=== PATIENT | female | born 1955 | race Caucasian/White ===

== ENCOUNTER 2016-06-28 15:21 | Outpatient (CLI) | payer OTHER | END 2016-06-28 15:22 | LOC: CARD 15:21 | PROVIDERS: ATTEND Internal Medicine Cardiovascular Disease | DX: R00.2 Palpitations (principal); R60.9 Edema, unspecified; I10 Essential (primary) hypertension; F17.210 Nicotine dependence, cigarettes, uncomplicated; R94.5 Abnormal results of liver function studies; R05 Cough | CPT/HCPCS: 99214 ==

== ENCOUNTER 2016-06-30 08:23 | Outpatient (CLI) | payer OTHER ==
--- NOTE | 2016-06-30 13:53 | Diagnostic Imaging Report ---
JULIA GALAN [facility] [address] [facility].[address] [id number] Report Submission Date: June 30, 2016 9:39:19 AM CDT Patient Study Name: VERONICA BORREGO I Date: June 30, 2016 8:29:42 AM CDT Modality Type: CR Gender: F Description: CHEST : 57 Institution: [facility] Physician: JULIA GALAN Pa and lateral chest Clinical history :short of breath coughing Technique pa and lateral upright Findings: The lung tabares are hyperinflated. There is a interstitial infiltrate in both lung bases. No hilar mediastinal mass is seen. There is aortic atherosclerosis. No pleural effusion is seen. Thoracic spondylosis is present. Impression: Hyperinflation of lungs Interstitial infiltrate in both lungs greatest the bases. Consider CT the chest for further evaluation Aortic atherosclerosis Electronically signed on June 30, 2016 9:39:19 AM CDT by: Rodolfo PENA
== END 2016-06-30 08:24 ==
LOC: RAD 08:23
PROVIDERS: ATTEND Internal Medicine Cardiovascular Disease
DX: R91.8 Other nonspecific abnormal finding of lung field (principal); I70.0 Atherosclerosis of aorta
CPT/HCPCS: 71020

== ENCOUNTER 2016-12-06 08:29 | Outpatient (CLI) | payer OTHER ==
--- NOTE | 2016-12-06 18:30 | Diagnostic Imaging Report ---
[facility] [address] [facility].[address] [id number] Report Submission Date: Dec 06, 2016 9:48:58 AM CDT Patient Study Name: VERONICA BORREGO I Date: Dec 06, 2016 7:42:06 AM CDT Modality Type: US Gender: F Description: ABDOMEN COMPLETE : 57 Institution: [facility] Physician: JUNITO DE LA ROSA Ultrasound abdomen History: ALCOHOLIC HEPATITIS, CIRRHOSIS, ELEVATED LFT'S; GALLBLADDER REMOVED 10 YEARS AGO Ceron scale and color Doppler images of the abdomen are submitted No similar comparison studies The visualized portions of the pancreas are within normal limits. The liver is heterogeneous in echotexture and slightly nodular in contour. Lliver measures 15.7 cm, no intrahepatic biliary dilatation. Liver parenchyma is coarse. Antegrade flow is demonstrated in the portal vein, echogenicity is noted within the lumen of the portal vein The aorta measures 2.1x 2.1 cm in its proximal portion, 1.9 x 2.0 cm in its midportion, 1.5 x 1.7 cm in its distal portion, normal The right kidney demonstrates parenchymal heterogeneity in its midportion. No right hydronephrosis. Right kidney measures 5.1 x 11.3 x 4.2 cm Gallbladder is surgically absent Common bile duct measures 3 mm, normal Left kidney measures 10.8 x 5.5 x 5.1 cm and demonstrates an anechoic 1.1 x 1.1 x 1.3 cm cyst at its superior pole Spleen measures 10.7 cm, within normal limits Impression: 1. Hepatic steatosis. Hepatomegaly. Hepatic parenchyma is inhomogeneous with slightly nodular hepatic contour consistent with provided history of cirrhosis. 2. Turbulent and diminished flow within the portal vein, echogenicity within portal vein lumen, nonocclusive portal vein thrombosis is difficult to exclude. Recommend four phase liver protocol CT evaluation for further evaluation. 3. Right renal parenchyma is inhomogeneous, while this may be technical, suggest renal parenchymal evaluation by cross-sectional imaging 4. Left renal cyst. Post cholecystectomy. No biliary dilatation. Electronically signed on Dec 06, 2016 9:48:58 AM CDT by: Rossy PENA
== END 2016-12-06 08:30 ==
LOC: RAD 08:29
PROVIDERS: ATTEND Student in an Organized Health Care Education/Training Program
DX: K70.10 Alcoholic hepatitis without ascites (principal); K74.60 Unspecified cirrhosis of liver
CPT/HCPCS: 76700

== ENCOUNTER 2017-04-06 09:52 | Outpatient (CLI) | payer OTHER | END 2017-04-06 09:53 | LOC: LAB 09:52 | PROVIDERS: ATTEND Student in an Organized Health Care Education/Training Program | DX: K74.60 Unspecified cirrhosis of liver (principal) | CPT/HCPCS: 82525 ==